=== PATIENT | male | born 1945 | race Caucasian/White ===

== ENCOUNTER → 2025-01-18 | Outpatient (CLI) | payer MEDICARE, SELFPAY ==
--- NOTE | 2025-01-22 14:59 | STRESSREP ---
Stress Test Report Exercise stress test. 79-year-old man with a history of chest pain. Stress protocol: Resting EKG demonstrates normal sinus rhythm with a rate of 58 bpm resting blood pressure is 118/70 mmHg. The patient exercised according to the regular [facility] protocol for a total duration of 6 minutes and 46 seconds attaining a maximum heart rate of 155 bpm which was 111% of maximum predicted heart rate; the maximum workload was 9.3 metabolic equivalents. At rest there were no ST or T wave changes noted to suggest ischemia and at peak exercise upsloping ST changes only were noted which did not meet the criteria for ischemia. No clinical angina was noted the test was terminated due to the target heart rate being achieved/fatigue. The peak blood pressure was 164/98 mmHg. Rate-pressure product was 22,700. At approximately 1 minute and 25 seconds into recovery the patient appeared to have gone into an ectopic atrial rhythm with a rate ranging between 125 and 136 bpm. Heart rate eventually improved but at 16 minutes and 50 seconds was still an ectopic atrial rhythm with a rate of approximately 108 bpm. Blood pressure remained stable. Conclusion: Exercise stress test with no EKG changes for ischemia. Ectopic atrial Tachycardia noted during exercise.
== END | disposition home or self-care (01) ==
PROVIDERS: PCP Internal Medicine; Referring Provider Internal Medicine Cardiovascular Disease; Visit Provider Internal Medicine Cardiovascular Disease
DX: R07.89 Other chest pain (principal); R94.31 Abnormal electrocardiogram [ECG] [EKG]
CPT/HCPCS: 93017

== ENCOUNTER → 2025-02-01 | Outpatient (CLI) | payer MEDICARE, SELFPAY ==
--- NOTE | 2025-02-01 10:55 | ECHOD_ITS ---
Reason For Study Reason For Study: ARRYTHMIA Procedure This was a 2D Doppler, Color Flow transthoracic echocardiogram. Exam performed in department. Left Ventricle Normal LV size. Mild concentric left ventricular hypertrophy. Apical false tendon noted. Left ventricular systolic function is normal. The left ventricular ejection fraction is 60 %. Stage 1 diastolic dysfunction. Right Ventricle Normal RV size. Normal systolic function. Atria The left and right atria are normal. Mitral Valve The mitral valve is structurally normal. No prolapse or stenosis seen. Trivial mitral valve insufficiency. Tricuspid Valve Normal tricuspid valve. Trivial tricuspid valve insufficiency. Unable to estimate RV systolic pressure due to insufficient tricuspid regurgitant envelope. Aortic Valve Trisinus/trileaflet aortic valve. Pulmonic Valve Normal pulmonic valve. Mild (1+) pulmonic valve insufficiency. Great Vessels Normal sized aortic root. Pericardium/Pleural No pericardial effusion. MMode/2D Measurements & Calculations LVIDd: 4.4 cm IVSd: 1.1 cm Ao root diam: 3.9 cm LVIDs: 2.8 cm LVPWd: 1.3 cm FS: 35.0 % LAV(MOD-bp): 41.4 ml LVAd ap4: 25.6 cm2 SV(MOD-sp4): 37.0 ml LAV(MOD-bp) Indexed: 23.3 ml/m2 LVLd ap4: 7.9 cm SI(MOD-sp4): 20.8 ml/m2 LAV(MOD-sp2): 33.0 ml EDV(MOD-sp4): 69.3 ml LAV(MOD-sp4): 42.4 ml EDV(sp4-el): 70.8 ml LVAs ap4: 15.8 cm2 LVLs ap4: 6.8 cm ESV(MOD-sp4): 32.3 ml ESV(sp4-el): 31.1 ml EF(MOD-sp4): 53.4 % EF(sp4-el): 56.0 % SV(sp4-el): 39.7 ml LA A4 area: 16.4 cm2 LA dimension(2D): 3.4 cm RA A4 area: 14.5 cm2 Time Measurements MV dec time: 0.25 sec Doppler Measurements & Calculations MV E max pedro: 77.9 cm/sec Lat Peak E' Pedro: 7.2 cm/sec Med Peak E' Pedro: 7.0 cm/sec MV A max pedro: 86.6 cm/sec E/E' lat: 10.8 E/E' med: 11.2 MV E/A: 0.90 MV V2 max: 103.5 cm/sec Ao V2 max: 152.8 cm/sec MV max P.3 mmHg MV dec slope: 308.4 cm/sec2 Ao max P.3 mmHg MV V2 mean: 58.6 cm/sec Ao V2 mean: 101.5 cm/sec MV mean P.6 mmHg Ao mean P.8 mmHg MV V2 VTI: 38.8 cm Ao V2 VTI: 36.9 cm AV (velocity ratio): 0.66 LV V1 max: 96.1 cm/sec PA V2 max: 118.3 cm/sec LV V1 max P.7 mmHg PA V2 mean: 76.2 cm/sec LV V1 mean P.1 mmHg LV V1 mean: 67.7 cm/sec LV V1 VTI: 24.4 cm ECHO/Echo Complete Interpretation Summary The left ventricular ejection fraction is 60 %. Stage 1 diastolic dysfunction. Structually normal valves. Ordering Physician: Lei Alfonso Referring Physician: Lei Alfonso Performed By: Silvia Quintana RCS
== END | disposition home or self-care (01) ==
LOC: CVS 10:54
PROVIDERS: PCP Internal Medicine; Referring Provider Internal Medicine Cardiovascular Disease; Visit Provider Internal Medicine Cardiovascular Disease
DX: R00.2 Palpitations (principal)
CPT/HCPCS: 93306

== ENCOUNTER → 2025-04-04 | Outpatient (CLI) | payer MEDICARE, SELFPAY ==
--- NOTE | 2025-04-04 09:13 | CT_ITS ---
PROCEDURE: CTA CHEST W/WO CONTRAST 04/04/2025 Tachycardia. 04/04/2025 REASON FOR EXAM: RULE OUT PE Tachycardia. Patient is 3 weeks post total hip replacement. TECHNIQUE: Procedure Code: [id number] Modality: CT Procedure: CTA CHEST W/WO CONTRAST Multiplanar Sagittal and Coronal images were obtained. 3D post processing was performed CONTRAST: Isovue 370 VOLUME: 100 mL One or more dose reduction techniques were used (e.g., Automated exposure control, adjustment of the mA and/or kV according to patient size, use of iterative reconstruction technique). RADIATION DOSE SUMMARY: CTDlvol: 8.7 mGy DLP: 396.74 mGycm COMPARISON: None FINDINGS: Hardware: None Lymph nodes: No suspicious lymph nodes are seen. Heart: The heart is nonenlarged. No coronary artery calcification is present. Pericardium is unremarkable. Thoracic Aorta: No thoracic aortic aneurysm or dissection. Mild atherosclerotic calcification of the aortic arch. Pulmonary Vessels: No evidence of pulmonary embolism. Lungs and Airways: Mild increased linear markings at the left lung base suggestive of possible linear scarring. No focal infiltrate is seen. Pleura: No pleural effusion. Upper Abdomen: Unremarkable Bones: Degenerative changes of the thoracic spine. CT/CTA Chest W/WO Contrast IMPRESSION: No evidence of pulmonary embolism. Mild linear scarring at the left lung base. Reading Location: [place] [id number]
[2025-04-04 10:07] LABS: Hematocrit 37.7 % (40-54); Hemoglobin 13.0 g/dL (13.0-16.5); Immature Granulocytes Count 0.030 X10^3/uL (0.0-0.0); Mean Corp Hgb Conc 34.5 g/dL (32-36); Mean Corpuscular Volume 91.1 fL (80-94); Mean Platelet Vol. 9.3 fl (6.2-12.0); NRBC Flagged by Analyzer 0 % (0-5); Platelet Count 313 K/mm3 (150-450); RBC Distribution Width CV 13.3 % (11.6-14.6); RBC Distribution Width SD 44.3 fl (35.1-43.9); Red Blood Count 4.14 M/mm3 (4.6-6.2); White Blood Count 6.0 K/mm3 (4.4-11.0)
[2025-04-04 10:47] LABS: Anion Gap 8 (5-15); BUN 20 mg/dL (4-19); BUN/Creat Ratio 28.3 RATIO (10-20); Calcium,Total 9.3 mg/dL (7.6-11.0); Carbon Dioxide 25.8 mmol/L (21.0-32.0); Chloride 104 mmol/L (98-108); Glucose 99 mg/dL (70-99); Magnesium 2.2 mg/dL (1.5-2.2); Potassium 4.2 mmol/L (3.3-5.1)
== END | disposition home or self-care (01) ==
PROVIDERS: PCP Internal Medicine; Referring Provider Student in an Organized Health Care Education/Training Program; Visit Provider Student in an Organized Health Care Education/Training Program
DX: R00.0 Tachycardia, unspecified (principal)
CPT/HCPCS: 36415; 71275; 80048; 83735; 84439; 84443; 85025; Q9967